=== PATIENT | male | born 1985 | race Caucasian/White ===

== ENCOUNTER 2018-05-06 21:32 | Emergency (ER) | payer SELFPAY ==
[~2018-05-06] VITALS: Ht 177.8 cm; Wt 104.3 kg
[~2018-05-06 21:32] MED LIST: AMOX500C2 PO; CEFP500T4 PO; CETI10CA PO; FAMO-119 PO; HYDR-3583 PO; NF-TRA/ACE PO; PRD10T PO; SULF1TAB35 PO
[2018-05-06] MEDS ORDERED: LIDOCAINE 1% INJ 20 ML 20 ML VIAL ONE (21:37)
--- NOTE | 2018-05-06 21:44 | ED Upper Extremity ---
General Chief Complaint: Laceration Stated Complaint: ARM LAC Source: patient, family Exam Limitations: no limitations History of Present Illness Date Seen by Provider: May 06, 2018 Time Seen by Provider: 21:42 Initial Comments Patient is a 32-year-old male who presents to the emergency room with a right forearm laceration. He reports locking himself out of his house and he always leaves a window unlocked and when he went to open a month window by pushing up on it his arm went through the glass. He has a 4 and half centimeter laceration to his right forearm. Onset: just prior to arrival Pain/Injury Location: right forearm Method of Injury: other (put his arm through a window) Allergies and Home Medications Allergies Coded Allergies: No Known Drug Allergies (Unverified , 09/05/12) Home Medications Cetirizine HCl 10 Mg Capsule, 10 MG PO DAILY, (Reported) Famotidine 20 Mg Tablet, 20 MG PO BID Prescribed by: SONNY VAUGHAN on 12/28/152345 Prednisone 10 Mg Tab, 40 MG PO DAILY Prescribed by: SONNY VAUGHAN on 12/28/156 Patient Home Medication List Home Medication List Reviewed: Yes Constitutional: see HPI; No chills, No diaphoresis EENTM: no symptoms reported Respiratory: see HPI; No dyspnea on exertion, No short of breath, No wheezing Cardiovascular: see HPI; No chest pain, No edema Gastrointestinal: see HPI; No abdominal pain, No constipation, No diarrhea, No nausea, No vomiting Genitourinary: see HPI; No decreased output, No discharge Musculoskeletal: see HPI; No back pain, No gout Skin: see HPI, other (laceration to the right forearm) Psychiatric/Neurological: See HPI; Denies Anxiety, Denies Depressed All Other Systems Reviewed Negative Unless Noted: Yes Past Recpvkt-Zqjwmb-Cbgtxq Hx Past Med/Social Hx: Reviewed Nursing Past Med/Soc Hx Patient Social History Recent Foreign Travel: No Contact w/Someone Who Travel: No Seasonal Allergies Seasonal Allergies: Yes (ALLERGIC TO HIS DOG) Past Medical History Abdominal, Ear Surgery Family Medical History Reviewed Nursing Family Hx Physical Exam Vital Signs Capillary Refill : General Appearance: WD/WN, no apparent distress HEENT: PERRL/EOMI, normal ENT inspection, TMs normal, pharynx normal Neck: non-tender, full range of motion, supple Cardiovascular: normal peripheral pulses, regular rate, rhythm, no edema, no murmur Respiratory: chest non-tender, lungs clear, normal breath sounds, no respiratory distress Gastrointestinal: normal bowel sounds, non tender, soft Back: normal inspection, no CVA tenderness, no vertebral tenderness Shoulder: normal inspection, non-tender, no evidence of injury, normal ROM Elbow/Forearm: normal inspection, non-tender, normal ROM, Right (laceration) Wrist: Yes normal inspection, Yes non-tender, Yes no evidence of injury, Yes normal ROM, Yes abrasions Hand: normal inspection, non-tender, no evidence of injury, normal ROM Neurologic/Tendon: normal sensation, normal motor functions, normal tendon functions, responds to pain, no evidence tendon injury, other (the patient is able to open and close his hand and bend at the wrist out difficulty. He is able to move each individual finger and make a fist.) Neurologic/Psychiatric: alert, normal mood/affect, oriented x 3 Skin: normal color, warm/dry, other (there is a foreign half centimeter laceration to the right forearm. ) Lymphatic: no adenopathy Procedures/Interventions Wound Location: Upper Extremities Other Wound Location Right forearm Wound's Depth, Shape: superficial Wound Explored: clean Irrigated w/ Saline (ccs): 500 Volume Anesthetic (ccs): 8 Wound Debrided: minimal Suture: Prolene Suture Size: 4-0 Number of Sutures: 9 Progress The area was anesthetized with approximately a 8mL of lidocaine 1% without epi. The laceration was then irrigated with normal saline and Betasept proximally 500 mL of saline. The laceration was closed with 9 simple interrupted sutures. A dressing of Telfa, gauze, soft roll was placed after closure. Progress/Results/Core Measures Results/Orders My Orders Medications Given in ED Vital Signs/I&O Progress Progress Note : Progress Note The patient was not up-to-date on his tetanus vaccine and was updated on this visit. He agrees for plans of discharge and to return for signs of infection and for suture removal. Departure Impression Primary Impression: Laceration Disposition: 01 HOME, SELF-CARE Condition: Stable/Unchanged Departure-Patient Inst. Decision time for Depature: 22:13 Referrals: KARIME AGUILERA DO (PCP) Primary Care Physician CHARLIE VILLALTA (Family) Primary Care Physician Patient Instructions: Laceration Repair With Stitches (DC) Add. Discharge Instructions: Watch for signs of infection such as increased redness, swelling, drainage. If they should develop please come back to the emergency room or go to your doctor. Return back to the emergency room in 7-10 days for suture removal. Avoid submerging the wound in bathtubs, swimming pools, [place], or lakes. Follow -up with her doctor within 1 week for recheck return back to emergency room for any concerns as needed. All discharge instructions reviewed with patient and/or family. Voiced understanding. ASHA WALLACE May 06, 2018 21:44
[2018-05-06] MEDS ORDERED: TETANUS,DIPTH,PERTUSS P/F (BOOSTRIX) 0.5 ML VIAL IM ONE (21:45)
[2018-05-06] MEDS ORDERED: LIDOCAINE 1% INJ 20 ML 20 ML VIAL INJ ONE (21:45)
[2018-05-06 22:16] VITALS: BP 130/82
== END 2018-05-06 22:16 | disposition home or self-care (01) ==
LOC: EDUNIT# 21:32 → ER 21:34
DX: S51.811A Laceration without foreign body of right forearm, initial encounter (principal); Z23 Encounter for immunization; Z79.52 Long term (current) use of systemic steroids; W25.XXXA Contact with sharp glass, initial encounter
CPT/HCPCS: 12002; 90471; 90715

== ENCOUNTER 2018-05-16 13:25 | Emergency (ER) | payer SELFPAY ==
[~2018-05-16] VITALS: Ht 177.8 cm; Wt 104.3 kg
[2018-05-16 13:31] VITALS: BP 0/0
--- OUTSIDE RECORDS SUMMARY | 2018-05-17 17:41 | XMS REPORT ---
Author Author CHARLIE VILLALTA [facility] Address [address] [place] [address] Care Team Providers Care Picker Tender Helper Name Role Phone CHARLIE VILLALTA Unavailable PROBLEMS Type Condition ICD9-CM Code GWS74-JN Code Onset Dates Condition Status SNOMED Code Assessment Prediabetes R73.09 15 Jul, 2016 Active 755803856 Problem Snoring R06.83 Active 12682745 Problem Daytime hypersomnia G47.19 Active 82123901016748 Problem Mixed hyperlipidemia E78.2 Active 855439738 Problem Prediabetes R73.09 Active 607080883 Problem Right testicular pain N50.8 Active 74680433 Problem GERD with esophagitis K21.0 Active 641865174 ALLERGIES Substance Reaction Event Type Date Status Lovastatin shortness of breath, swelling Drug Allergy Jul, Active SOCIAL HISTORY No smoking Hx information available PLAN OF CARE VITAL SIGNS Height 70 in 2016-07-18 Weight 245.5 lbs 2016-07-18 Heart Rate 88 bpm 2016-07-18 BMI 35.22 kg/m2 2016-07-18 Blood pressure systolic 130 mmHg 2016-07-18 Blood pressure diastolic 84 mmHg 2016-07-18 MEDICATIONS Medication Instructions Dosage Frequency Start Date End Date Duration Status Simvastatin 20 MG Orally Once a day 1 tablet in the evening 24h 30 day(s) Active Zyrtec Allergy 10 MG Orally Once a day 1 tablet as needed 24h Active RESULTS No Results PROCEDURES Procedure Date Ordered Related Diagnosis Body Site Office Visit, Est Pt., Level 3 Jul 18, 2016 IMMUNIZATIONS No Known Immunizations
--- OUTSIDE RECORDS SUMMARY | 2018-05-17 17:41 | XMS REPORT ---
Author Author GURINDER SYKES Organization [facility] Address [address] [place] [address] Care Team Providers Care Heel Sorter Name Role Phone MARTI SYKESNETTE Unavailable PROBLEMS Type Condition ICD9-CM Code AQX38-UK Code Onset Dates Condition Status SNOMED Code Problem Prediabetes R73.09 Active 206852051 Problem Environmental allergies Z91.09 Active 673042804 Problem Snoring R06.83 Active 44983130 Problem GERD with esophagitis K21.0 Active 293679959 Problem Mixed hyperlipidemia E78.2 Active 697040052 Problem Daytime hypersomnia G47.19 Active 92232720620738 Problem Right testicular pain N50.8 Active 37777490 ALLERGIES Substance Reaction Event Type Date Status Lovastatin shortness of breath, swelling Drug Allergy Oct, Active SOCIAL HISTORY No smoking Hx information available PLAN OF CARE Activity Details Follow Up 1 Week, prn Reason: VITAL SIGNS Height 70 in 2016-10-05 Weight 236.6 lbs 2016-10-05 Temperature 97.5 degrees Fahrenheit 2016-10-05 Heart Rate 102 bpm 2016-10-05 Respiratory Rate 18 2016-10-05 BMI 33.94 kg/m2 2016-10-05 Blood pressure systolic 126 mmHg 2016-10-05 Blood pressure diastolic 78 mmHg 2016-10-05 MEDICATIONS Medication Instructions Dosage Frequency Start Date End Date Duration Status PredniSONE 20 mg Orally twice a day 1 tablet 12h Oct, Oct, 05 days Active RESULTS No Results PROCEDURES Procedure Date Ordered Related Diagnosis Body Site Office Visit, Est Pt., Level 3 Oct 05, 2016 IMMUNIZATIONS No Known Immunizations
--- OUTSIDE RECORDS SUMMARY | 2018-05-17 17:43 | XMS REPORT ---
Author Author CHARLIE VILLALTA Organization [employer] Address Unknown Phone Unavailable Care Team Providers Care Take Up Operator Name Role Phone CHARLIE VILLALTA CP Unavailable Allergies, Adverse Reactions, Alerts Substance Reaction Event Type N.K.D.A. Info Not Available Non Drug Allergy Problems Problem Type Condition Code Onset Dates Condition Status Problem Other and unspecified hyperlipidemia 272.4 Active Assessment Wrist pain, left M25.532 Active Problem Allergic rhinitis due to pollen 477.0 Active Medications Medication Code System Code Instructions Start Date End Date Status Dosage Zyrtec Allergy [facility] [address]-79 10 MG Orally Once a day 1 tablet as needed Procedures Procedure Coding System Code Date Office Visit, Est Pt., Level 3 CPT-4 64389 Nov 09, 2015 Vital Signs Date/Time: Nov 09, 2015 Temperature 98.4 F Weight 231.6 lbs Height 70 in BMI 33.23 Index Blood Pressure Diastolic 78 mmHg Blood Pressure Systolic 130 mmHg Cardiac Monitoring Heart Rate 96 bpm Results No Known Results Summary Purpose [employer] Submission
--- OUTSIDE RECORDS SUMMARY | 2018-05-17 17:46 | XMS REPORT ---
Author SHAYY Todd [facility] [employer] Address Unknown Phone Unavailable Care Team Providers Care Generator Operator Name Role Phone SHAYY GARCIA CP Unavailable Allergies, Adverse Reactions, Alerts Substance Reaction Event Type N.K.D.A. Info Not Available Non Drug Allergy Problems Problem Type Condition Code Onset Dates Condition Status Problem Other and unspecified hyperlipidemia 272.4 Active Assessment URI (upper respiratory infection) J06.9 Active Problem Allergic rhinitis due to pollen 477.0 Active Medications Medication Code System Code Instructions Start Date End Date Status Dosage Zyrtec Allergy [facility] [address]-53 10 MG Orally Once a day 1 tablet as needed Sudafed [facility] [address]-89 60 Orally every 6 hrs Aug 11, 2015 1 tablet as needed Procedures Procedure Coding System Code Date Office Visit, Est Pt., Level 2 CPT-4 32398 Aug 11, 2015 Vital Signs Date/Time: Aug 11, 2015 Temperature 97.6 F Weight 223.3 lbs Height 70 in BMI 32.04 Index Blood Pressure Diastolic 64 mmHg Blood Pressure Systolic 138 mmHg Cardiac Monitoring Heart Rate 104 bpm Results No Known Results Summary Purpose [employer] Submission
--- OUTSIDE RECORDS SUMMARY | 2018-05-17 17:52 | XMS REPORT ---
Author Author CHARLIE VILLALTA Organization [facility] [place] Address [address] [place] [address] Care Team Providers Care Television Repairer Name Role Phone CHARLIE VILLALTA Unavailable PROBLEMS Type Condition ICD9-CM Code XUE03-WF Code Onset Dates Condition Status SNOMED Code Problem Prediabetes R73.09 Active 067591638 Problem Mixed hyperlipidemia E78.2 Active 876683348 Problem GERD with esophagitis K21.0 Active 902700838 Problem Chronic allergic rhinitis due to animal hair and dander J30.81 Active 340246005398207 Problem Hyperlipidemia, unspecified hyperlipidemia type E78.5 Active 43762431 Problem Daytime hypersomnia G47.19 Active 55573526980006 Problem Right testicular pain N50.8 Active 45753620 Problem Environmental allergies Z91.09 Active 012352415 Problem Snoring R06.83 Active 29572948 ALLERGIES Substance Reaction Event Type Date Status Lovastatin shortness of breath, swelling Drug Allergy Oct, Active ENCOUNTERS Encounter Location Date Diagnosis [facility] [place] [address] [address] Oct, Chronic allergic rhinitis due to animal hair and dander J30.81 and Prediabetes R73.09 [facility] [place] [address] [address] Sep, GERD with esophagitis K21.0 and Hyperlipidemia, unspecified hyperlipidemia type E78.5 [facility] [address] [id number] Jun, Dental examination Z01.20 [facility] [place] [address] [address] Oct, Acute bronchitis, unspecified organism J20.9 [facility] [address] [address] Oct, Acute nasopharyngitis J00 and Environmental allergies Z91.09 [place] [address] [address] 15 Jul, 2016 Prediabetes R73.09 ; Mixed hyperlipidemia E78.2 ; Snoring R06.83 and Daytime hypersomnia G47.19 [place] [address] [address] Jul, [place] [address] [address] Jun, Frequent headaches R51 ; Fatigue, unspecified type R53.83 and Mixed hyperlipidemia E78.2 [place] [address] [address] Jun, Frequent headaches R51 ; Fatigue, unspecified type R53.83 ; Mixed hyperlipidemia E78.2 ; Snoring R06.83 and Daytime hypersomnia G47.19 [place] [address] [address] March, [place] [address] [address] Feb, Right testicular pain N50.8 and Mixed hyperlipidemia E78.2 [place] [address] [address] Jan, [place] [address] [address] Jan, GERD with esophagitis K21.0 [place] [address] [address] Dec, [place] [address] [address] Dec, GERD with esophagitis K21.0 and Mixed hyperlipidemia E78.2 [place] [address] [address] Dec, GERD with esophagitis K21.0 ; Mixed hyperlipidemia E78.2 and Epididymitis N45.1 [facility] [place] [address] [place] [id number] [place] [address] Nov, Wrist pain, left M25.532 [facility] [place] [address] [id number] [place] [address] 07 Nov, 2015 Wrist pain, left M25.532 [facility] [place] [address] [place] [id number] [place] [address] 09 Aug, 2015 URI (upper respiratory infection) J06.9 [facility] [place] [address] [id number] [place] [address] 14 Feb, 2015 [facility] [place] [address] [id number] [place] [address] Feb, [facility] [place] [id number] [place] [address] Jan, [facility] [place] [address] [id number] [place] [address] 24 Jan, 2015 [facility] [place] [address] [id number] [place] [address] Jan, [facility] [place] [id number] [place] [address] Jan, [facility] [place] [id number] [place] [address] 17 Jan, 2015 [facility] [place] [id number] [place] [address] Jan, [facility] [place] [id number] [place] [address] Jul, [facility] [place] [id number] [place] [address] Jul, [facility] [place] [id number] [place] [address] Jun, [facility] [place] [address] [facility] [id number] [address] Jun, [facility] [place] [address] [place] [address] Apr, [facility] [place] [address] [id number] [address] Apr, [facility] [place] [address] [place] [address] Jan, [facility] [place] [id number] [address] Jan, [facility] [place] [address] [place] [address] Apr, [facility] [place] [address] [place] [address] Apr, [facility] [place] [address] [id number] [address] Oct, IMMUNIZATIONS No Known Immunizations SOCIAL HISTORY Never Assessed REASON FOR VISIT Allergies, would like to discuss his OTC meds versus a prescription-Roel PLAN OF CARE Activity Details Follow Up 6 months prn Reason:pre diabetes VITAL SIGNS Height 70 in 2017-10-14 Weight 225.9 lbs 2017-10-14 Temperature 98.4 degrees Fahrenheit 2017-10-14 Heart Rate 84 bpm 2017-10-14 Respiratory Rate 20 2017-10-14 BMI 32.41 kg/m2 2017-10-14 Blood pressure systolic 108 mmHg 2017-10-14 Blood pressure diastolic 76 mmHg 2017-10-14 MEDICATIONS Medication Instructions Dosage Frequency Start Date End Date Duration Status Singulair 10 mg Orally Once a day 1 tablet in the evening 24h Oct, 90 days Active Levocetirizine Dihydrochloride 5 mg Orally Once a day 1 tablet in the evening 24h Oct, Jan, 90 days Active Omeprazole 40 MG Orally Once a day 1 capsule 24h Sep, 90 days Active Flonase 50 MCG/ACT Nasally Once a day 1 spray in each nostril 24h Oct, 30 day(s) Active RESULTS Name Result Date Reference Range A1C (IN HOUSE) 2017-10-14 A1C IN HOUSE 5.7 4.3 - 5.6 % Previous A1c 5.7 Lot [id number] Exp date PROCEDURES Procedure Date Ordered Result Body Site GLYCATED HEMOGLOBIN TEST Oct 14, 2017 INSTRUCTIONS MEDICATIONS ADMINISTERED No Known Medications MEDICAL (GENERAL) HISTORY Type Description Date Medical History Epididymitis Medical History Hyperkalemia Medical History Frequent headaches Surgical History tube in right ear 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
--- OUTSIDE RECORDS SUMMARY | 2018-05-17 17:52 | XMS REPORT ---
Author Author CHARLIE VILLALTA Organization [employer] Address Unknown Phone Unavailable Care Team Providers Care All Source Intelligence Name Role Phone CHARLIE VILLALTA CP Unavailable Allergies No Known Allergies Problems Problem Type Condition Code Onset Dates Condition Status Problem Allergic rhinitis due to pollen 477.0 Active Problem Epididymitis N45.1 Active Problem Hyperkalemia E87.5 Active Problem Fatigue, unspecified type R53.83 Active Problem Snoring R06.83 Active Problem Frequent headaches R51 Active Problem GERD with esophagitis K21.0 Active Problem Mixed hyperlipidemia E78.2 Active Problem Daytime hypersomnia G47.19 Active Problem Right testicular pain N50.8 Active Assessment Mixed hyperlipidemia E78.2 Active Assessment Fatigue, unspecified type R53.83 Active Assessment Frequent headaches R51 Active Problem Other and unspecified hyperlipidemia 272.4 Active Medications No Known Medications Procedures Procedure Coding System Code Date ASSAY OF FREE THYROXINE CPT-4 38930 Jun 28, 2016 COMPLETE CBC W/AUTO DIFF WBC CPT-4 44206 Jun 28, 2016 ASSAY THYROID STIM HORMONE CPT-4 72897 Jun 28, 2016 COMPREHEN METABOLIC PANEL CPT-4 93281 Jun 28, 2016 LIPID PANEL CPT-4 43316 Jun 28, 2016 VENIPUNCT, ROUTINE* CPT-4 65275 Jun 28, 2016 Results No Known Results Summary Purpose [employer] Submission
--- OUTSIDE RECORDS SUMMARY | 2018-05-17 17:53 | XMS REPORT ---
Author Author CHARLIE VILLALTA [facility] Address [address] [place] [address] Care Team Providers Care Die Reamer Name Role Phone CHARLIE VILLALTA Unavailable PROBLEMS Type Condition ICD9-CM Code ALA79-UF Code Onset Dates Condition Status SNOMED Code Problem Prediabetes R73.09 Active 669969406 Problem Environmental allergies Z91.09 Active 181279445 Problem Snoring R06.83 Active 25078652 Problem GERD with esophagitis K21.0 Active 061198313 Problem Mixed hyperlipidemia E78.2 Active 633694990 Problem Daytime hypersomnia G47.19 Active 19055668237166 Problem Right testicular pain N50.8 Active 52805016 ALLERGIES Substance Reaction Event Type Date Status Lovastatin shortness of breath, swelling Drug Allergy Oct, Active SOCIAL HISTORY No smoking Hx information available PLAN OF CARE Activity Details Follow Up prn Reason: VITAL SIGNS Height 70 in 2016-10-30 Weight 240.1 lbs 2016-10-30 Temperature 98.6 degrees Fahrenheit 2016-10-30 Heart Rate 80 bpm 2016-10-30 Respiratory Rate 18 2016-10-30 BMI 34.45 kg/m2 2016-10-30 Blood pressure systolic 134 mmHg 2016-10-30 Blood pressure diastolic 82 mmHg 2016-10-30 MEDICATIONS Medication Instructions Dosage Frequency Start Date End Date Duration Status Azithromycin 250 MG Orally Once a day 2 tablets on day 1, the take 1 tablet day 2-5 24h 5 day(s) Active RESULTS No Results PROCEDURES Procedure Date Ordered Related Diagnosis Body Site Office Visit, Est Pt., Level 3 Oct 30, 2016 IMMUNIZATIONS No Known Immunizations
--- OUTSIDE RECORDS SUMMARY | 2018-05-17 17:58 | XMS REPORT ---
Author Author CHARLIE VILLALTA Organization [employer] Address Unknown Phone Unavailable Care Team Providers Care Charging Plug Placer Name Role Phone CHARLIE VILLALTA CP Unavailable Allergies, Adverse Reactions, Alerts Substance Reaction Event Type Lovastatin shortness of breath, swelling Drug Allergy Problems Problem Type Condition Code [...] Assessment Fatigue, unspecified type R53.83 Active Assessment Daytime hypersomnia G47.19 Active Assessment Frequent headaches R51 Active Assessment Snoring R06.83 Active Problem Other and unspecified hyperlipidemia 272.4 Active Medications Medication Code System Code Instructions Start Date End Date Status Dosage Zyrtec Allergy [facility] [address]-28 10 MG Orally Once a day 1 tablet as needed Simvastatin [facility] [address]-80 20 MG Orally Once a day February 20, 2016 1 tablet in the evening Procedures Procedure Coding System Code Date Office Visit, Est Pt., Level 4 CPT-4 15431 Jun 27, 2016 GLYCATED HEMOGLOBIN TEST CPT-4 39472 Jun 27, 2016 Vital Signs Date/Time: Jun 27, 2016 Cardiac Monitoring Heart Rate 120 bpm Weight 242.8 lbs Height 70 in BMI 34.83 Index Blood Pressure Diastolic 86 mmHg Blood Pressure Systolic 132 mmHg Results No Known Results Summary Purpose [employer] Submission
--- OUTSIDE RECORDS SUMMARY | 2018-05-17 17:59 | XMS REPORT ---
Author Author CHARLIE VILLALTA [facility] Address [address] [place] [address] Care Team Providers Care Outpatient Facility Physical Therapist Name Role Phone CHARLIE VILLALTA Unavailable PROBLEMS Type Condition ICD9-CM Code YSA50-ME Code Onset Dates Condition Status SNOMED Code Problem Snoring R06.83 Active 28363313 Problem Daytime hypersomnia G47.19 Active 49539946688207 Problem Mixed hyperlipidemia E78.2 Active 434678713 Problem Prediabetes R73.09 Active 609473303 Problem Right testicular pain N50.8 Active 72510427 Problem GERD with esophagitis K21.0 Active 165401315 ALLERGIES No Known Allergies SOCIAL HISTORY No smoking Hx information available PLAN OF CARE VITAL SIGNS MEDICATIONS No Known Medications RESULTS No Results PROCEDURES No Known procedures IMMUNIZATIONS No Known Immunizations
--- OUTSIDE RECORDS SUMMARY | 2018-05-17 18:02 | XMS REPORT ---
Author CHARLIE Márquez [facility] eClinical[employer] Address Unknown Phone Unavailable Care Team Providers Care Music Industry Intern Name Role Phone CHARLIE VILLALTA CP Unavailable Allergies, Adverse Reactions, Alerts Substance Reaction Event Type Lovastatin shortness of breath, swelling Drug Allergy Problems Problem Type Condition Code Onset Dates Condition Status Assessment Right testicular pain N50.8 Active Assessment Mixed hyperlipidemia E78.2 Active Problem GERD with esophagitis K21.0 Active Problem Mixed hyperlipidemia E78.2 Active Problem Right testicular pain N50.8 Active Problem Allergic rhinitis due to pollen 477.0 Active Problem Other and unspecified hyperlipidemia 272.4 Active Problem Epididymitis N45.1 Active Problem Hyperkalemia E87.5 Active Medications Medication Code System Code Instructions Start Date End Date Status Dosage Flonase NDC 0 50 mcg/actuation January 17, 2015 1 sprays by Nasal route 2 times per day in each nostril. Zyrtec Allergy [facility] [address]-72 10 MG Orally Once a day 1 [place] [address]-81 20 MG Orally Once a day February 20, 2016 1 tablet in the evening Procedures Procedure Coding System Code Date URINE CULTURE/COLONY COUNT CPT-4 24769 February 20, 2016 Office Visit, Est Pt., Level 3 CPT-4 14927 February 20, 2016 URINALYSIS, AUTO, W/O SCOPE CPT-4 12726 February 20, 2016 Vital Signs Date/Time: February 20, 2016 Temperature 98.4 F Weight 238.4 lbs Height 70 in BMI 34.20 Index Blood Pressure Diastolic 77 mmHg Blood Pressure Systolic 136 mmHg Cardiac Monitoring Heart Rate 88 bpm Results Name Result Date Reference Range Unit Abnormality Flag UA LONG DIP (IN HOUSE) ----DAE negative 20160220 ----NIT negative 20160220 ----SG 1.010 20160220 ----KET negative 20160220 ----ANAHY negative 20160220 ----GLU negative 20160220 ----Odor none 20160220 ----pH 6.5 20160220 ----BLO negative 20160220 ----URO 0.2 20160220 ----Protein negative 20160220 ----Lot # [id number] ----Exp date 20160220 ----Clarity clear 20160220 ----Color yellow 20160220 Summary Purpose eClinicalWorks Submission
--- OUTSIDE RECORDS SUMMARY | 2018-05-17 18:40 | XMS REPORT | Continuity of Care Document ---
Demographics Preferred Language Unknown Marital Status Unknown Confucianist Affiliation Unknown Race Unknown Ethnic Group Unknown Author Author [facility] Address Unknown Phone Unavailable Allergies Active Description Code Type Severity Reaction Onset Reported/Identified Relationship to Patient Clinical Status Yes No Known Drug Allergies [id number] Drug Allergy Unknown N/A 09/05/2012 Medications There is no data. Problems Date Dx Coded Attending Type Code Diagnosis Diagnosed By 11/01/2009 462 ACUTE PHARYNGITIS 11/01/2009 465.9 UPPER RESPIRATORY INFECTION 11/01/2009 786.2 COUGH 11/01/2009 VONDA MAURICIO MD 462 ACUTE PHARYNGITIS 11/01/2009 VONDA MAURICIO MD 465.9 UPPER RESPIRATORY INFECTION 11/01/2009 VONDA MAURICIO MD 786.2 COUGH 11/01/2009 LEISA PANCHAL DEQUAN R 462 ACUTE PHARYNGITIS 11/01/2009 LEISA PANCHAL DEQUAN R 465.9 UPPER RESPIRATORY INFECTION 11/01/2009 LEISA PANCHAL DEQUAN R 786.2 COUGH 11/01/2009 AISHA HERNANDEZ MD N 462 ACUTE PHARYNGITIS 11/01/2009 AISHA HERNANDEZ MD N 465.9 UPPER RESPIRATORY INFECTION 11/01/2009 AISHA HERNANDEZ MD N 786.2 COUGH 11/01/2009 LEISA PANCHAL, DEQUAN R 462 ACUTE PHARYNGITIS 11/01/2009 SHANTEL DE LA FUENTE APRNINA R 465.9 UPPER RESPIRATORY INFECTION 11/01/2009 LEISA PANCHAL DEQUAN R 786.2 COUGH 08/15/2010 Ot 382.01 08/15/2010 Ot 388.70 09/06/2012 Ot 521.00 UNSPEC DENTAL CARIES 09/06/2012 Ot 525.9 DENTAL DISORDER NOS 01/07/2014 VONDA MAURICIO MD 477.9 ALLERGIC RHINITIS CAUSE UNSPECIFIED 01/07/2014 VONDA MAURICIO MD 508.9 RESPIRATORY CONDITIONS DUE TO UNSPECIFIED EXTERNAL AGENT 01/07/2014 DEQUAN DE LA FUENTE APRN R 477.9 ALLERGIC RHINITIS CAUSE UNSPECIFIED 01/07/2014 DEQUAN DE LA FUENTE APRN R 508.9 RESPIRATORY CONDITIONS DUE TO UNSPECIFIED EXTERNAL AGENT 01/07/2014 AISHA HERNANDEZ MD N 477.9 ALLERGIC RHINITIS CAUSE UNSPECIFIED 01/07/2014 AISHA HERNANDEZ MD N 508.9 RESPIRATORY CONDITIONS DUE TO UNSPECIFIED EXTERNAL AGENT 01/07/2014 SHANTEL DE LA FUENTE APRNINA R 477.9 ALLERGIC RHINITIS CAUSE UNSPECIFIED 01/07/2014 SHANTEL DE LA FUENTE APRNINA R 508.9 RESPIRATORY CONDITIONS DUE TO UNSPECIFIED EXTERNAL AGENT 06/28/2014 SHANTEL DE LA FUENTE APRNINA R 461.9 SINUSITIS ACUTE 06/28/2014 AISHA HERNANDEZ MD N 461.9 SINUSITIS ACUTE 06/28/2014 DEQUAN DE LA FUENTE APRN R 461.9 SINUSITIS ACUTE 01/17/2015 DEQUAN DE LA FUENTE APRN R 477.0 ALLERGIC RHINITIS DUE TO POLLEN 01/17/2015 SHANTEL DE LA FUENTE APRNINA R V70.0 ROUTINE GENERAL MEDICAL EXAMINATION AT A HEALTH CARE FACILITY 01/24/2015 DEQUAN DE LA FUENTE APRN R 272.4 HYPERLIPIDEMIA 12/06/2015 Ot N45.1 EPIDIDYMITIS 12/17/2015 KATHLEEN VARMA HEDIS ANALYST Ot F17.210 NICOTINE DEPENDENCE, CIGARETTES, UNCOMPL 12/17/2015 KATHLEEN VARMA HEDIS ANALYST Ot R07.0 PAIN IN THROAT 12/29/2015 SONNY VAUGHAN DO Ot T78.3XXA ANGIONEUROTIC EDEMA, INITIAL ENCOUNTER 02/26/2016 CHARLIE VILLALTA MITER SAWYER Ot N50.8 OTHER SPECIFIED DISORDERS OF MALE GENITA 11/07/2016 CHARLIE VILLALTA MITER SAWYER Ot N50.8 OTHER SPECIFIED DISORDERS OF MALE GENITA 05/06/2018 CHARLIE VILLALTA MITER SAWYER Ot N50.8 OTHER SPECIFIED DISORDERS OF MALE GENITA 05/06/2018 ASHA WALLACE Ot S51.811A LACERATION W/O FOREIGN BODY OF RIGHT FOR 05/06/2018 ASHA WALLACE Ot W25.XXXA CONTACT WITH [place], INITIAL ENCOUN 05/06/2018 ASHA WALLACE Ot Z23 ENCOUNTER FOR IMMUNIZATION 05/06/2018 ASHA WALLACE Ot Z79.52 ALF (CURRENT) USE OF SYSTEMIC STER 05/07/2018 ASHA WALLACE Ot S51.811A LACERATION W/O FOREIGN BODY OF RIGHT FOR 05/07/2018 ASHA WALLACE Ot W25.XXXA CONTACT WITH [place], INITIAL ENCOUN 05/07/2018 RODRIGO ASHA Ot Z23 ENCOUNTER FOR IMMUNIZATION 05/07/2018 RODRIGOASHA Ot Z79.52 ALF (CURRENT) USE OF SYSTEMIC STER Procedures Code Description [place] [address] ROUTINE VENIPUNCTURE 01/19/2015 24081 CBC 01/19/2015 5342855 GFR CALC (RESULT ONLY) 01/19/2015 99138 CMP 01/19/2015 99165 LIPID PANEL 01/19/2015 42189 TSH 01/19/2015 Results There is no data. Encounters ACCT No. Visit Date/Time Discharge Status Pt. Type Provider Facility Loc./Unit Complaint [id number] 05/06/2018 21:34:00 05/06/2018 22:16:00 DIS Emergency BRADENASHA BA [facility] ER ARM LAC [id number] 11/11/2016 21:00:00 11/11/2016 23:59:59 CLS Preadmit CHARLIE VILLALTA MITER SAWYER [facility] SLEEP HYPERSOMNIA,SNORING [id number] 02/23/2016 14:42:00 02/23/2016 23:59:59 CLS Outpatient CHARLIE VILLALTA MITER SAWYER [facility] RAD RIGHT TESTICULAR PAIN [id number] 12/28/2015 21:17:00 12/29/2015 00:08:00 DIS Emergency SONNY VAUGHAN DO [facility] ER ALERGIC REACTION [id number] 12/17/2015 09:51:00 12/17/2015 11:48:00 DIS Emergency KATHLEEN VARMA APRN [facility] ER THROAT DISCOMFORT [id number] 07/09/2013 12:32:00 07/09/2013 23:59:59 CLS Outpatient [id number] 12/06/2015 22:01:00 Document Registration [id number] 09/05/2012 22:00:00 Document Registration [id number] 08/14/2010 21:00:00 Document Registration [id number] 01/19/2015 08:26:00 01/19/2015 23:59:59 CLS Outpatient DEQUAN DE LA FUENTE APRN [id number] 07/21/2014 16:15:00 07/21/2014 23:59:59 CLS Outpatient AISHA HERNANDEZ MD [id number] 06/28/2014 16:33:00 06/28/2014 23:59:59 CLS Outpatient DEQUAN DE LA FUENTE APRN [id number] 01/07/2014 11:03:00 01/07/2014 23:59:59 CLS Outpatient VONDA MAURICIO MD [id number] 03/09/2013 09:24:00 Document Registration [id number] 10/14/2017 14:00:00 10/14/2017 23:59:59 CLS Outpatient CHARLIE VILLALTA APRN [facility]
== END 2018-05-16 13:44 | disposition home or self-care (01) ==
LOC: EDUNIT# 13:25 → ER 13:28
DX: Z48.02 Encounter for removal of sutures (principal); F17.200 Nicotine dependence, unspecified, uncomplicated

== ENCOUNTER 2018-09-07 08:39 | Emergency (ER) | payer SELFPAY ==
[~2018-09-07] VITALS: Ht 177.8 cm; Wt 106.6 kg
--- NOTE | 2018-09-07 10:00 | ED General ---
General Chief Complaint: Cough/Cold/Flu Symptoms Stated Complaint: COUGH Source of Information: Patient Exam Limitations: No Limitations History of Present Illness Date Seen by Provider: Sep 07, 2018 Time Seen by Provider: 08:50 Initial Comments This 32-year-old man presents to the emergency room with complaints of cough, shortness of air, congestion, and fever that started about one week ago. Fever has since resolved. He was seen at [facility] yesterday and prescribed amoxicillin because of otitis media. Patient is a smoker. He denies a history of asthma but he has inhalers that he uses because of bronchitis and allergy symptoms. He has not been using them routinely for these symptoms. He is especially concerned today about pain he is feeling in the lower quadrants of his abdomen that is particularly painful with cough. This developed a couple of days ago and has worsened. Allergies and Home Medications Allergies Coded Allergies: No Known Drug Allergies (Unverified , 09/05/12) Home Medications Cetirizine HCl 10 Mg Capsule, 10 MG PO DAILY, (Reported) Famotidine 20 Mg Tablet, 20 MG PO BID Prescribed by: SONNY VAUGHAN on 12/28/156 Prednisone 10 Mg Tab, 40 MG PO DAILY Prescribed by: SONNY VAUGHAN on 12/28/15 2346 Prednisone 20 Mg Tab, 40 MG PO DAILY Prescribed by: LUIS DENISE on 09/07/18 1001 Patient Home Medication List Home Medication List Reviewed: Yes Review of Systems Review of Systems Constitutional: see HPI EENTM: see HPI Respiratory: see HPI Cardiovascular: no symptoms reported Gastrointestinal: see HPI Genitourinary: no symptoms reported Musculoskeletal: see HPI Skin: no symptoms reported Psychiatric/Neurological: No Symptoms Reported Hematologic/Lymphatic: No Symptoms Reported Past Cwokxom-Ifruch-Kuhaoy Hx Immunizations Up To Date Tetanus Booster (TDap): Unknown PED Vaccines UTD: Yes Seasonal Allergies Seasonal Allergies: Yes (ALLERGIC TO HIS DOG) Past Medical History Surgeries: Yes (TUMOR REMOVED FROM STOMACH, TUBE IN ONE EAR) Abdominal, Ear Surgery Respiratory: Yes (tobaccoism, history of bronchitis) Cardiac: No Neurological: No Reproductive Disorders: Yes (scrotal swelling when constipated) Gastrointestinal: Yes ("HEARTBURN" ) Musculoskeletal: No Endocrine: No HEENT: No Cancer: No Psychosocial: No Integumentary: No Blood Disorders: No Physical Exam Vital Signs Vital Signs - First Documented 09/07/18 09:44 Temp 97.4 Pulse 101 Resp 20 B/P (MAP) 163/85 (111) Pulse Ox 99 O2 Delivery Room Air Capillary Refill : Height, Weight, BMI Height: 5'10.00" Weight: 230lbs. 0oz. 104.523541kw; 28.12 BMI Method:Stated General Appearance: No Apparent Distress, WD/WN HEENT: PERRL/EOMI, Pharyngeal Erythema, TM Abnormal (L) (erythematous), TM Abnormal (R) (cerumen impaction obscuring visualization) Neck: Normal Inspection Respiratory: Lungs Clear, Normal Breath Sounds, No Accessory Muscle Use, No Respiratory Distress, Other (splinting respirations. When expiration is forced , it induces wheezing, rhonchi, and cough) Cardiovascular: Regular Rate, Rhythm, No Edema, No Murmur Gastrointestinal: Normal Bowel Sounds, Soft, Tenderness (bilateral lower quadrants), Other (no bulges with Valsalva to suggest hernia) Genital/Rectal: Normal Genital Exam, Other (no inguinal hernia detected) Extremity: Normal Inspection Neurologic/Psychiatric: Alert, Oriented x3, No Motor/Sensory Deficits, Normal Mood/Affect, devops II-XII Norm as Tested Skin: Normal Color, Warm/Dry Procedures/Interventions Suture Size: 4-0 Progress/Results/Core Measures Suspected Sepsis SIRS Temperature: Pulse: Respiratory Rate: Blood Pressure / Mean: Results/Orders Vital Signs/I&O 09/07/18 09:44 Temp 97.4 Pulse 101 Resp 20 B/P (MAP) 163/85 (111) Pulse Ox 99 O2 Delivery Room Air Capillary Refill : Progress Note : Progress Note I counseled patient on smoking cessation and appropriate use of inhalers. Prednisone was prescribed for further treatment. We discussed appropriate use of ueyg-kmk-wplpwxy medications as well. Follow-up with his PCP was recommended. Departure Impression Primary Impression: Acute bronchitis Qualified Codes: J20.9 - Acute bronchitis, unspecified Additional Impressions: Abdominal muscle strain Qualified Codes: S39.011A - Strain of muscle, fascia and tendon of abdomen, initial encounter Smoking Cerumen impaction Qualified Codes: H61.21 - Impacted cerumen, right ear Disposition: 01 HOME, SELF-CARE Condition: Stable Departure-Patient Inst. Decision time for Depature: 09:56 Referrals: KARIME AGUILERA DO (PCP) Primary Care Physician CHARLIE VILLALTA (Family) Primary Care Physician Patient Instructions: Acute Bronchitis, Adult (DC), Ear Wax Impaction Add. Discharge Instructions: For pain take ibuprofen up to 600 mg every 6 hours as needed. Add Tylenol ( acetaminophen) up to 1000 mg every 6 hours as needed for additional pain relief. For cough suppression you may take vnat-kwt-dzdgotr medications with DM ( dextromethorphan). If you take a combination medication, please be sure you do not take extra doses of Tylenol (acetaminophen). Please check active ingredient lists on combination medications. Reduce smoking and work toward quitting as soon as possible. Seek assistance from your primary care provider if necessary. You may use obvu-ihk-kzovqoy earwax removal products such as Debrox. Do not insert Q-tips into the ear canal as this may pack wax deeper into the ear canal. Contact your doctor for a follow-up exam and to discuss smoking cessation as soon as possible. Resume your inhaled maintenance steroid after your oral prednisone is complete. Complete your antibiotic as prescribed. Use your albuterol inhaler 2 puffs every 4 hours as needed for uncontrolled cough, shortness of breath, or wheezing. All discharge instructions reviewed with patient and/or family. Voiced understanding. Scripts Prednisone (Prednisone) 20 Mg Tab 40 MG PO DAILY, #8 TAB Prov: LUIS GALINDO MD 09/07/18 LUIS GALINDO MD Sep 07, 2018 10:00
[2018-09-07] MEDS ORDERED: PRD20T PO (10:01)
[2018-09-07 10:15] VITALS: BP 163/85
== END 2018-09-07 10:15 | disposition home or self-care (01) ==
LOC: EDUNIT# 08:39 → ER 08:40
DX: S39.011A Strain of muscle, fascia and tendon of abdomen, initial encounter (principal); J20.9 Acute bronchitis, unspecified; H61.21 Impacted cerumen, right ear; F17.210 Nicotine dependence, cigarettes, uncomplicated; Z86.012 Personal history of benign carcinoid tumor; X58.XXXA Exposure to other specified factors, initial encounter
CPT/HCPCS: 99282

== ENCOUNTER 2018-12-26 12:15 | Emergency (ER) | payer SELFPAY ==
[~2018-12-26] VITALS: Ht 177.8 cm; Wt 99.8 kg
[~2018-12-26 12:15] MED LIST changes: +PRD20T PO
--- NOTE | 2018-12-26 13:19 | ED General ---
General Chief Complaint: General Problems/Pain Stated Complaint: WANTS HIV TESTING Nursing Triage Note: PATIENT HERE STATING HE WOULD LIKE TO BE TESTED FOR HIV. CLAIMS THAT HE AND HIS ARE BUT THAT HE FOUND A "SUSCPICIOUS PRESCRIPTION BAG" WITH HIS 'S NAME ON IT. HE IS CONCERNED THAT THE PRESCRIPTION IS AN HIV MEDICATION. HE STATES THAT HE RECENTLY HAD SOME SORES IN HIS MOUTH NAD HAS FELT FATIGUED. Nursing Sepsis Screen: No Definite Risk Source of Information: Patient Exam Limitations: No Limitations History of Present Illness Date Seen by Provider: Dec 26, 2018 Time Seen by Provider: 13:25 Initial Comments 33-year-old male patient presents to the emergency department with reports of needing an HIV test. Patient states that he and I was are at this time and he had found a "suspicious prescription bag" behind the stove. States when he confronted his about the prescriptions she became very angry. Patient states he has been googling symptoms and is concerned that he may have an infection such as HIV from his . Denies his having a confirmed HIV test. Patient states she has been "acting suspiciously." Also states she knows that he has a history of drug abuse, and states "she is driving him away and to do drugs again." Patient also states he was "getting really anxious at home thinking about everything going on" and decided to come to the emergency department. Patient denies any IV drug use or having a history of IV drug use. Patient denies any homicidal or suicidal ideation. Patient also complains of one year onset of chronic generalized abdominal pain and 8 months of a chronic cough. Denies being seen by his PCP for this. Denies seeing anyone for the chronic abdominal pain. Denies any symptoms being worse than usual. He does recall having sores in his mouth a couple of months ago, but these have resolved completely. He does feel fatigued at times. Timing/Duration: Changing Over Time Modifying Factors: worse with Other (denies trying any hmgu-knv-pqflegp remedies.) Allergies and Home Medications Allergies Coded Allergies: No Known Drug Allergies (Unverified , 09/05/12) Home Medications Cetirizine HCl 10 Mg Capsule, 10 MG PO DAILY, (Reported) Famotidine 20 Mg Tablet, 20 MG PO BID Prescribed by: SONNY VAUGHAN on 12/28/15 3103 Hydroxyzine Pamoate 25 Mg Capsule, 25 MG PO Q4H PRN for ANXIETY Prescribed by: GUMARO AHN on 12/26/18 1455 Prednisone 10 Mg Tab, 40 MG PO DAILY Prescribed by: SONNY VAUGHAN on 12/28/15 2346 Prednisone 20 Mg Tab, 40 MG PO DAILY Prescribed by: LUIS FIGUEREDO on 09/07/18 1001 Patient Home Medication List Home Medication List Reviewed: Yes Review of Systems Review of Systems Constitutional: No chills, No diaphoresis, No dizziness, No fever, No malaise, No weakness; other (fatigue) EENTM: see HPI; No ear pain, No hoarseness, No mouth pain, No mouth swelling, No nose congestion, No throat pain, No throat swelling Respiratory: No cough, No dyspnea on exertion, No phlegm, No short of breath, No wheezing Cardiovascular: No chest pain, No edema, No palpitations, No syncope Gastrointestinal: see HPI; No constipation, No diarrhea, No hematemesis, No heartburn, No jaundice, No melena, No nausea, No vomiting Genitourinary: No decreased output, No discharge, No dysuria, No frequency, No hematuria, No pain Musculoskeletal: no symptoms reported Skin: no symptoms reported Psychiatric/Neurological: No Symptoms Reported All Other Systems Reviewed Negative Unless Noted: Yes (Negative excepted noted.) Past Fsiqbap-Mrtgkc-Knwjzu Hx Past Med/Social Hx: Reviewed Nursing Past Med/Soc Hx Patient Social History Alcohol Use: Occasionally Uses Recreational Drug Use: Yes (MARIJUANA AND "UPPERS") Smoking Status: Current Everyday Smoker Type Used: Cigarettes 2nd Hand Smoke Exposure: Yes Recent Foreign Travel: No Contact w/Someone Who Travel: No Recent Infectious Disease Expo: No Physical Abuse: No Sexual Abuse: No Immunizations Up To Date Tetanus Booster (TDap): Unknown PED Vaccines UTD: Yes Seasonal Allergies Seasonal Allergies: Yes (ALLERGIC TO HIS DOG) Past Medical History Surgeries: Yes (TUMOR REMOVED FROM STOMACH, TUBE IN ONE EAR) Abdominal, Ear Surgery Respiratory: Yes (tobaccoism, history of bronchitis) Cardiac: No Neurological: No Reproductive Disorders: Yes (scrotal swelling when constipated) Gastrointestinal: Yes ("HEARTBURN" ) Musculoskeletal: No Endocrine: No HEENT: No Cancer: No Psychosocial: No Integumentary: No Blood Disorders: No Family Medical History Reviewed Nursing Family Hx No Pertinent Family Hx Physical Exam Vital Signs Vital Signs - First Documented 12/26/18 12:30 Temp 98.8 Pulse 119 Resp 18 B/P (MAP) 128/85 (99) Pulse Ox 98 Capillary Refill : Less Than 3 Seconds Height, Weight, BMI Height: 5'10.00" Weight: 220lbs. 0oz. 99.394667hz; 28.12 BMI Method:Stated General Appearance: No Apparent Distress, WD/WN HEENT: PERRL/EOMI, TMs Normal, Normal ENT Inspection, Pharynx Normal Neck: Full Range of Motion, Normal Inspection, Non Tender, Supple Respiratory: Lungs Clear, Normal Breath Sounds, No Accessory Muscle Use, No Respiratory Distress Cardiovascular: Regular Rate, Rhythm, No Edema, No Gallop, No Murmur, Normal Peripheral Pulses Gastrointestinal: Normal Bowel Sounds, No Organomegaly, Soft; No Distended, No Guarding, No Mass, No Rebound; Tenderness (mild generalized tenderness) Back: Normal Inspection Extremity: Normal Capillary Refill, No Calf Tenderness, No Pedal Edema Neurologic/Psychiatric: Alert, Oriented x3, Normal Mood/Affect, aerodynamics teacher II-XII Norm as Tested, Other (slightly anxious mood) Skin: Normal Color, Warm/Dry; No Jaundice, No Petechia, No Rash Procedures/Interventions Suture Size: 4-0 Progress/Results/Core Measures Suspected Sepsis Recent Fever Within 48 Hours: No Infection Criteria Present: None New/Unexplained Altered Menta: No Sepsis Screen: No Definite Risk SIRS Temperature:98.8 Pulse: 119 Respiratory Rate: 18 Blood Pressure 128 /85 Mean: 99 Results/Orders Vital Signs/I&O 12/26/18 12/26/18 12:30 14:25 Temp 98.8 98.8 Pulse 119 119 Resp 18 18 B/P (MAP) 128/85 (99) 128/85 (99) Pulse Ox 98 98 Capillary Refill : Less Than 3 Seconds Blood Pressure Mean: 99 Departure Communication (Admissions) Patient seen and evaluated. Patient's symptoms are very vague and nonspecific. Patient does state that the more he thought about his situation at home, the more anxious he had become. He states he wanted to come to the ED for "peace of mind". I discussed contacting [facility] for patient to follow- up as an outpatient for evaluation, testing, and for improved continuity of care as someone will need to follow his labs closely. This can be better accomplished though his PCP. 1355 patient case discussed with the denial resolution specialist PRO SH[employer] ATTENDANT, Viviana, at [facility] clinic. She reports they are able to do rapid HIV testing in their facility. Viviana states they will have the patient be seen early this week for recheck and further evaluation and management. She requests patient to contact their office first thing Friday for appointment time. This was discussed with the patient. Patient verbalizes understanding and is agreeable with this treatment plan. I discussed this case with Dr. Figueredo, he agrees with the plan of care. Impression Primary Impression: Fatigue Qualified Codes: R53.83 - Other fatigue Additional Impressions: Stress at home Chronic cough Disposition: HOME, SELF-CARE Condition: Improved Departure-Patient Inst. Decision time for Depature: 14:13 Referrals: KARIME AGUILERA DO (PCP) Primary Care Physician DEVIN COVARRUBIAS (Family) Primary Care Physician Patient Instructions: Fatigue (DC), Stress Add. Discharge Instructions: All discharge instructions reviewed with patient and/or family. Voiced understanding. Over the counter vistaril 25 mg by mouth every 4-6 hours as needed for stress or nerves. Do NOT take medications prescribed for other people. Get plenty of rest. Drink plenty of fluids. Follow-up with [facility] Friday or Friday for recheck, outpatient labs, and further management. Return to the emergency department immediately for worsened symptoms, shortness of breath, chest pain, vomiting, decreased urination, fever , thoughts of harming yourself, thoughts of harming others, or any other concerns. Scripts Hydroxyzine Pamoate (Vistaril) 25 Mg Capsule 25 MG PO Q4H PRN for ANXIETY, #14 CAP 0 Refills Prov: GUMARO AHN 12/26/18 GUMARO AHN Dec 26, 2018 13:19
[2018-12-26 14:25] VITALS: BP 128/85
[2018-12-26] MEDS ORDERED: HYDR25CA PO (14:55)
== END 2018-12-26 14:25 | disposition home or self-care (01) ==
LOC: EDUNIT# 12:15 → ER 12:17
DX: R53.83 Other fatigue (principal); F43.9 Reaction to severe stress, unspecified; R05 Cough; F17.210 Nicotine dependence, cigarettes, uncomplicated; F12.10 Cannabis abuse, uncomplicated; Z79.52 Long term (current) use of systemic steroids; Z90.89 Acquired absence of other organs; Z98.890 Other specified postprocedural states; Z87.09 Personal history of other diseases of the respiratory system; Z20.6 Contact with and (suspected) exposure to human immunodeficiency virus [HIV]
CPT/HCPCS: 99281

== ENCOUNTER 2019-05-17 06:28 | Outpatient (CLI) | payer MEDICAID ==
[~2019-05-17] VITALS: Ht 177.8 cm; Wt 102.5 kg
[~2019-05-17 06:28] MED LIST changes: +HYDR25CA PO
== END 2019-05-17 12:19 | disposition home or self-care (01) ==
LOC: PREOP 06:28
PROVIDERS: ATTEND Urology
DX: Z01.818 Encounter for other preprocedural examination (principal)

== ENCOUNTER 2019-07-07 10:31 | Emergency (ER) | payer MEDICAID ==
[~2019-07-07] VITALS: Ht 177.8 cm; Wt 104.3 kg
[2019-07-07 11:30] LABS: BILIRUBIN,URINE NEGATIVE (NEGATIVE); CLARITY,URINE CLEAR; COLOR,URINE YELLOW; GLUCOSE, URINE (UA) NEGATIVE (NEGATIVE); KETONES,URINE NEGATIVE (NEGATIVE); LEUKOCYTE ESTERASE ,URINE NEGATIVE (NEGATIVE); NITRITE,URINE NEGATIVE (NEGATIVE); PH,URINE 6 (5-9); PROTEIN,URINE NEGATIVE (NEGATIVE); UROBILINOGEN,URINE NORMAL (NORMAL)
--- NOTE | 2019-07-07 11:33 | NUR ---
LAB CONTACTED FOR BLOOD DRAW.
[2019-07-07 11:43] LABS: AMPHETAMINE SCREEN, URINE NEGATIVE (NEGATIVE); BARBITURATE SCREEN URINE NEGATIVE (NEGATIVE); BENZODIAZEPINES SCREEN URINE NEGATIVE (NEGATIVE); CANNABINOID SCREEN, URINE POSITIVE (NEGATIVE); COCAINE SCREEN URINE NEGATIVE (NEGATIVE); METHAMPHETAMINE SCREEN URINE S NEGATIVE (NEGATIVE); OPIATE SCREEN URINE NEGATIVE (NEGATIVE); TRICYCLIC ANTIDEPRESSANTS SCRE NEGATIVE (NEGATIVE)
[2019-07-07 11:44] LABS: METHADONE STAT NEGATIVE (NEGATIVE); OXYCODONE STAT NEGATIVE (NEGATIVE); PROPOXYPHENE STAT NEGATIVE (NEGATIVE)
--- NOTE | 2019-07-07 11:45 | ED General ---
General Chief Complaint: General Problems/Pain Stated Complaint: LOWER BACK PAIN;DEHYDRATION Nursing Triage Note: STATES HE WAS IN THE ER IN [place] LAST WEEK AND DX WITH DEHYDRATION THAT EFFECTED HIS KIDNEYS. THINKS HE WENT BACK TO WORK TO SOON BECAUSE HE IS HAVING KIDNEY PAIN AND WEAKNESS. Nursing Sepsis Screen: No Definite Risk History of Present Illness Date Seen by Provider: Jul 07, 2019 Time Seen by Provider: 11:30 Initial Comments 33-year-old male reports after a two-week history of dehydration. He is continuing to have intermittent low back pain. He reports trying to return to work and having problems with malaise and fatigue related to the heat. He works outside digging cable lines. He also reports possibly using meth or Ice this weekend from a friend, he is unsure what he was given. In addition he reports to using marijuana daily. He was seen by his primary care provider last week but has not followed up this week. He has been increasing his oral fluids, trying to get at least 1 L of fluids in before noon each day. He has been drinking Pedialyte, Sprite and Gatorade. Timing/Duration: Intermittent Severity: Mild Modifying Factors: improves with Rest Associated Systoms: No Chest Pain, No Cough, No Diaphoresis, No Fever/Chills, No Headaches; Malaise; No Nausea/Vomiting, No Rash, No Seizure, No Shortness of Air, No Syncope; Weakness Allergies and Home Medications Allergies Coded Allergies: lovastatin (Verified Allergy, Unknown, Anaphylaxis, 05/17/19) Home Medications No Active Prescriptions or Reported Meds Patient Home Medication List Home Medication List Reviewed: Yes Review of Systems Review of Systems Constitutional: no symptoms reported, see HPI, weakness Genitourinary: no symptoms reported, see HPI; No dysuria, No frequency, No hematuria, No pain Musculoskeletal: no symptoms reported, back pain All Other Systems Reviewed Negative Unless Noted: Yes Past Kxpnubk-Nihrxl-Nllsxy Hx Past Med/Social Hx: Reviewed Nursing Past Med/Soc Hx, Reviewed and Corrections made Patient Social History Alcohol Use: Rarely Uses Recreational Drug Use: Yes Drug of Choice: marijuana daily and meth amphetamines monthly Type Used: Cigarettes 2nd Hand Smoke Exposure: Yes Recent Foreign Travel: No Contact w/Someone Who Travel: No Recent Infectious Disease Expo: No Recent Hopitalizations: No Immunizations Up To Date Tetanus Booster (TDap): Unknown PED Vaccines UTD: Yes Seasonal Allergies Seasonal Allergies: Yes (ALLERGIC TO HIS DOG) Past Medical History Surgeries: Yes (TUMOR REMOVED FROM STOMACH, TUBE IN ONE EAR) Abdominal, Ear Surgery Respiratory: No Cardiac: No Neurological: No Reproductive Disorders: Yes (scrotal swelling when constipated) Genitourinary: Yes Gastrointestinal: Yes Gastroesophageal Reflux Musculoskeletal: No Endocrine: No HEENT: No Cancer: No Psychosocial: No Integumentary: Yes (rash on both arms) Blood Disorders: No Family Medical History No Pertinent Family Hx Physical Exam Vital Signs Vital Signs - First Documented 07/07/19 11:15 Temp 97.5 Pulse 83 Resp 16 B/P (MAP) 123/78 (93) Pulse Ox 97 O2 Delivery Room Air Capillary Refill : Less Than 3 Seconds Height, Weight, BMI Height: 5'10.00" Weight: 230lbs. 6.0oz. 104.995634ft; 32.8 BMI Method:Stated General Appearance: No Apparent Distress, WD/WN Eyes: Bilateral Eye Normal Inspection, Bilateral Eye PERRL, Bilateral Eye EOMI HEENT: PERRL/EOMI, TMs Normal, Normal ENT Inspection, Pharynx Normal, Other (oral mucosa pink and moist) Neck: Full Range of Motion, Normal Inspection, Non Tender, Supple Respiratory: Chest Non Tender, Lungs Clear, Normal Breath Sounds Cardiovascular: Regular Rate, Rhythm, No Edema, No Murmur, Normal Peripheral Pulses Gastrointestinal: Normal Bowel Sounds, Non Tender, Soft; No Mass, No Rebound, No Tenderness Back: Normal Inspection, No CVA Tenderness Extremity: Normal Capillary Refill, Normal Inspection, Normal Range of Motion, Non Tender, No Calf Tenderness, No Pedal Edema Neurologic/Psychiatric: Alert, Oriented x3, No Motor/Sensory Deficits, Normal M ood/Affect, 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 Skin: Normal Color, Warm/Dry; No Diaphoresis Lymphatic: No Adenopathy Procedures/Interventions Suture Size: 4-0 Progress/Results/Core Measures Suspected Sepsis Recent Fever Within 48 Hours: No Infection Criteria Present: None New/Unexplained Altered Menta: No Sepsis Screen: No Definite Risk SIRS Temperature:97.5 Pulse: 83 Respiratory Rate: 16 Laboratory Tests 07/07/19 11:45: White Blood Count 5.9 Blood Pressure 123 /78 Mean: 93 Laboratory Tests 07/07/19 11:45: Creatinine 0.89, Platelet Count 289, Total Bilirubin 0.2 Results/Orders Lab Results Laboratory Tests Test 07/07/19 11:24 07/07/19 11:45 Range/Units Urine Color YELLOW Urine Clarity CLEAR Urine pH 6 5-9 Urine Specific [place] 1.005 L 1.016-1.022 Urine Protein NEGATIVE NEGATIVE Urine Glucose (UA) NEGATIVE NEGATIVE Urine Ketones NEGATIVE NEGATIVE Urine Nitrite NEGATIVE NEGATIVE Urine Bilirubin NEGATIVE NEGATIVE Urine Urobilinogen NORMAL NORMAL MG/DL Urine Leukocyte Esterase NEGATIVE NEGATIVE Urine RBC (Auto) NEGATIVE NEGATIVE Urine RBC RARE /HPF Urine WBC NONE /HPF Urine Crystals NONE /LPF Urine Bacteria TRACE /HPF Urine Casts NONE /LPF Urine Mucus NEGATIVE /LPF Urine Culture Indicated NO Urine Opiates Screen NEGATIVE NEGATIVE Urine Oxycodone Screen NEGATIVE NEGATIVE Urine Methadone Screen NEGATIVE NEGATIVE Urine Propoxyphene Screen NEGATIVE NEGATIVE Urine Barbiturates Screen NEGATIVE NEGATIVE Ur Tricyclic Antidepressants Screen NEGATIVE NEGATIVE Urine Phencyclidine Screen NEGATIVE NEGATIVE Urine Amphetamines Screen NEGATIVE NEGATIVE Urine Methamphetamines Screen NEGATIVE NEGATIVE Urine Benzodiazepines Screen NEGATIVE NEGATIVE Urine Cocaine Screen NEGATIVE NEGATIVE Urine Cannabinoids Screen POSITIVE H NEGATIVE White Blood Count 5.9 4.3-11.0 10^3/uL Red Blood Count 4.60 4.35-5.85 10^6/uL Hemoglobin 13.8 13.3-17.7 G/DL Hematocrit 41 40-54 % Mean Corpuscular Volume 90 80-99 FL Mean Corpuscular Hemoglobin 30 25-34 PG Mean Corpuscular Hemoglobin Concent 33 32-36 G/DL Red Cell Distribution Width 13.6 10.0-14.5 % Platelet Count 289 130-400 10^3/uL Mean Platelet Volume 8.5 7.4-10.4 FL Neutrophils (%) (Auto) 56 42-75 % Lymphocytes (%) (Auto) 32 12-44 % Monocytes (%) (Auto) 10 0-12 % Eosinophils (%) (Auto) 1 0-10 % Basophils (%) (Auto) 1 0-10 % Neutrophils # (Auto) 3.3 1.8-7.8 X 10^3 Lymphocytes # (Auto) 1.9 1.0-4.0 X 10^3 Monocytes # (Auto) 0.6 0.0-1.0 X 10^3 Eosinophils # (Auto) 0.1 0.0-0.3 10^3/uL Basophils # (Auto) 0.0 0.0-0.1 10^3/uL Sodium Level 140 135-145 MMOL/L Potassium Level 4.1 3.6-5.0 MMOL/L Chloride Level 110 H 98-107 MMOL/L Carbon Dioxide Level 25 21-32 MMOL/L Anion Gap 5 5-14 MMOL/L Blood Urea Nitrogen 11 7-18 MG/DL Creatinine 0.89 0.60-1.30 MG/DL Estimat Glomerular Filtration Rate > 60 BUN/Creatinine Ratio 12 Glucose Level 95 70-105 MG/DL Calcium Level 8.8 8.5-10.1 MG/DL Corrected Calcium 8.7 8.5-10.1 MG/DL Magnesium Level 1.9 1.6-2.4 MG/DL Total Bilirubin 0.2 0.1-1.0 MG/DL Aspartate Amino Transf (AST/SGOT) 19 5-34 U/L Alanine Aminotransferase (ALT/SGPT) 34 0-55 U/L Alkaline Phosphatase 103 40-136 U/L Myoglobin 43.7 10.0-92.0 NG/ML Total Protein 6.6 6.4-8.2 GM/DL Albumin 4.1 3.2-4.5 GM/DL Thyroid Stimulating Hormone (TSH) 0.57 0.35-4.94 UIU/ML My Orders Orders - CRISTOPHER MCCOY Drug Screen Stat (Urine) (07/07/19 11:03) Ua Culture If Indicated (07/07/19 11:03) Cbc With Automated Diff (07/07/19 11:31) Comprehensive Metabolic Panel (07/07/19 11:31) Magnesium (07/07/19 11:31) Thyroid Stimulating Hormone (07/07/19 11:31) Myoglobin Serum (07/07/19 11:31) Vital Signs/I&O 07/07/19 11:15 Temp 97.5 Pulse 83 Resp 16 B/P (MAP) 123/78 (93) Pulse Ox 97 O2 Delivery Room Air Capillary Refill : Less Than 3 Seconds Blood Pressure Mean: 93 Progress Note : Time: 11:30 Progress Note Patient seen and evaluated, will obtain labs. He is having no nausea so we'll continue with oral hydration. He was drinking Sprite and has been given a Pedialyte. 1230 labs all essentially normal. Discussed with the patient. He is to continue with oral hydration and follow-up with his regular care provider if symptoms are not improving. Departure Impression Primary Impression: Fatigue Qualified Codes: R53.83 - Other fatigue Disposition: 01 HOME, SELF-CARE Condition: Improved Departure-Patient Inst. Decision time for Depature: 12:40 Referrals: KARIME AGUILERA DO (PCP) Primary Care Physician DEVIN COVARRUBIAS (Family) Primary Care Physician Patient Instructions: Dehydration, Adult (DC) Add. Discharge Instructions: Continue to increase oral hydration, 16 ounces every 2 hours while awake. Alternate between water, Gatorade, and Pedialyte. Eat a well-balanced diet. Periods of rest between heat exposure. Follow-up with your primary care provider if symptoms are not improving or worsen. Stop or decrease her marijuana use. Return to emergency department for new, urgent health problems. All discharge instructions reviewed with patient and/or family. Voiced understanding. Scripts No Active Prescriptions or Reported Meds Copy Copies To 1: KARIME AGUILERA AMY ARNP Jul 07, 2019 11:45
[2019-07-07 11:48] LABS: BACTERIA,URINE TRACE /HPF; RBC,URINE RARE /HPF
[2019-07-07 11:50] LABS: BASOPHILS % (AUTO) 1 % (0-10); EOSINOPHILS # (AUTO) 0.1 10^3/uL (0.0-0.3); EOSINOPHILS % (AUTO) 1 % (0-10); HEMATOCRIT 41 % (40-54); HEMOGLOBIN 13.8 G/DL (13.3-17.7); LYMPHOCYTES # (AUTO) 1.9 X 10^3 (1.0-4.0); LYMPHOCYTES % (AUTO) 32 % (12-44); MEAN CORPUSCULAR HEMOGLOBIN 30 PG (25-34); MEAN CORPUSCULAR HGB CONC 33 G/DL (32-36); MEAN CORPUSCULAR VOLUME 90 FL (80-99); MEAN PLATELET VOLUME 8.5 FL (7.4-10.4); MONOCYTES # (AUTO) 0.6 X 10^3 (0.0-1.0); MONOCYTES % (AUTO) 10 % (0-12); NEUTROPHILS # (AUTO) 3.3 X 10^3 (1.8-7.8); NEUTROPHILS % (AUTO) 56 % (42-75); PLATELET COUNT 289 10^3/uL (130-400); RED CELL DISTRIBUTION WIDTH 13.6 % (10.0-14.5); WHITE BLOOD COUNT 5.9 10^3/uL (4.3-11.0)
[2019-07-07 12:15] LABS: ALANINE AMINOTRANSFERASE 34 U/L (0-55); ALBUMIN 4.1 GM/DL (3.2-4.5); ALKALINE PHOSPHATASE 103 U/L (40-136); BILIRUBIN,TOTAL 0.2 MG/DL (0.1-1.0); BUN/CREATININE RATIO 12; CALCIUM 8.8 MG/DL (8.5-10.1); CARBON DIOXIDE 25 MMOL/L (21-32); CHLORIDE 110 MMOL/L (98-107); CREATININE SERUM 0.89 MG/DL (0.60-1.30); GFR ESTIMATED > 60; GLUCOSE 95 MG/DL (70-105); MAGNESIUM 1.9 MG/DL (1.6-2.4); POTASSIUM 4.1 MMOL/L (3.6-5.0); SODIUM 140 MMOL/L (135-145); TOTAL PROTEIN 6.6 GM/DL (6.4-8.2)
[2019-07-07 12:58] VITALS: BP 123/78
== END 2019-07-07 12:58 | disposition home or self-care (01) ==
LOC: EDUNIT# 10:31 → ER 10:32
DX: R53.83 Other fatigue (principal); K21.9 Gastro-esophageal reflux disease without esophagitis; Z88.8 Allergy status to other drugs, medicaments and biological substances; Z77.22 Contact with and (suspected) exposure to environmental tobacco smoke (acute) (chronic); Z86.018 Personal history of other benign neoplasm
CPT/HCPCS: 36415; 80053; 80306; 81000; 83735; 83874; 84443; 85025; 99282

== ENCOUNTER 2019-10-25 08:48 | Emergency (ER) | payer MEDICAID ==
[~2019-10-25] VITALS: Ht 70 cm; Wt 101.8 kg
--- NOTE | 2019-10-25 10:19 | ED Cough/URI ---
General Chief Complaint: Cough/Cold/Flu Symptoms Stated Complaint: COUGH;CONGESTION Nursing Triage Note: PT REPORTS COUGH AND CONGESTION FOR 1 WEEK. COUGH HAS GOTTEN WORSE AND IS NOW KEEPING PATIENT UP AT NIGHT. PT IS ALSO DIZZY AND LIGHT HEADED. 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 He has a history of intermittent asthma but his last albuterol inhaler is over a year old and he has not tried it. He smokes. He denies history of COPD. He is not having any wheezing. He is not having any nausea vomiting or diarrhea. His son is sick with similar symptoms that progressed to nausea vomiting and diarrhea for couple days ago but he is progressively getting better. He brought his son to the ER earlier in the week and said that the influenza swab was negative. Allergies and Home Medications Allergies Coded Allergies: lovastatin (Verified Allergy, Unknown, Anaphylaxis, 05/17/19) Home Medications Albuterol Sulfate 1 Puff Puff, 2 PUFF INH Q4H PRN for COUGH 1 PUFF = 90 MCG Prescribed by: VON MARIE on 10/25/19 1233 Benzonatate 100 Mg Capsule, 100 MG PO Q6H PRN for COUGH Prescribed by: VON MARIE on 10/25/19 1233 Patient Home Medication List Home Medication List Reviewed: Yes Review of Systems Review of Systems Constitutional: chills, fever (subjective), malaise EENTM: No ear discharge, No ear pain Respiratory: cough; No phlegm, No short of breath, No wheezing Cardiovascular: No chest pain, No Hx of Intervention, No palpitations Gastrointestinal: No abdominal pain, No nausea, No vomiting Genitourinary: No discharge, No dysuria Musculoskeletal: No back pain, No joint pain Skin: No pruritus, No rash Psychiatric/Neurological: Denies Headache, Denies Numbness, Denies Paresthesia Past Gcvqxgw-Dxmmiq-Pkiagi Hx Patient Social History Alcohol Use: Occasionally Uses Recreational Drug Use: Yes Drug of Choice: marijuana daily Type Used: Cigarettes 2nd Hand Smoke Exposure: Yes Recent Foreign Travel: No Contact w/Someone Who Travel: No Recent Infectious Disease Expo: No Recent Hopitalizations: No Immunizations Up To Date Tetanus Booster (TDap): Unknown PED Vaccines UTD: Yes Seasonal Allergies Seasonal Allergies: Yes (ALLERGIC TO HIS DOG) Past Medical History Surgeries: Yes (TUMOR REMOVED FROM STOMACH, TUBE IN ONE EAR) Abdominal, Ear Surgery Respiratory: No Cardiac: No Neurological: No Reproductive Disorders: Yes (scrotal swelling when constipated) Genitourinary: Yes Gastrointestinal: Yes Gastroesophageal Reflux Musculoskeletal: No Endocrine: No HEENT: No Cancer: No Psychosocial: No Integumentary: Yes (rash on both arms) Blood Disorders: No Family Medical History No Pertinent Family Hx Physical Exam Vital Signs - First Documented 10/25/19 09:08 Temp 36.8 Pulse 107 Resp 16 B/P (MAP) 133/74 (93) Pulse Ox 97 Capillary Refill : Less Than 3 Seconds Height: 5'10.00" Weight: 230lbs. 6.0oz. 104.136068rx; 207.00 BMI Method:Stated General Appearance: WD/WN, mild distress Eyes: Bilateral Eye Normal Inspection, Bilateral Eye PERRL, Bilateral Eye EOMI HEENT: PERRL/EOMI, normal ENT inspection, TMs normal, pharynx normal Neck: non-tender, full range of motion, supple, normal inspection Respiratory: lungs clear, normal breath sounds, no respiratory distress, no accessory muscle use Cardiovascular: normal peripheral pulses, regular rate, rhythm, no edema Gastrointestinal: normal bowel sounds, non tender, soft Neurologic/Psychiatric: alert, normal mood/affect Skin: normal color, warm/dry Procedures/Interventions Suture Size: 4-0 Progress/Results/Core Measures Suspected Sepsis Recent Fever Within 48 Hours: No Infection Criteria Present: None New/Unexplained Altered Menta: No Sepsis Screen: No Definite Risk SIRS Temperature: Pulse: 107 Respiratory Rate: 16 Blood Pressure 133 /74 Mean: 93 Results/Orders Micro Results Microbiology 10/25/19 Influenza Types A,B Antigen (DARRYL) - Final, Complete My Orders Orders - VON MARIE Chest Pa/Lat (2 View) (10/25/19 10:17) Influenza A And B Antigens (10/25/19 10:17) Vital Signs/I&O 12/23/19 12/23/19 09:08 12:37 Temp 36.8 Pulse 107 113 Resp 16 18 B/P (MAP) 133/74 (93) 150/82 Pulse Ox 97 97 Capillary Refill : Less Than 3 Seconds Blood Pressure Mean: 93 Progress Note : Time: 10:24 Progress Note Influenza swab and a chest x-ray. Plan to put him out with an albuterol inhaler, note for work, Tessalon Perles and ondansetron in case he develops gastroenteritis symptoms like his son. Patient's in agreement with this plan. Diagnostic Imaging Diagonstic Imaging: Xray Plain Films/CT/US/NM/MRI: chest (1v) Comments NAME: MANDO SPENCER [facility] REC#: [id number] PT STATUS: REG ER : 1985 PHYSICIAN: VON MARIE MD ADMIT DATE: 10/25/19/ER Draft Date of Exam:10/25/19 CHEST PA/LAT (2 VIEW) INDICATION: Cough and congestion. TIME OF EXAM: 10:34 AM Comparison is made with prior chest from 12/17/2015. The heart size is normal. The pulmonary vascularity is unremarkable. The lungs are clear. No infiltrate, effusion or pneumothorax is detected. Impression: No acute cardiopulmonary process is detected. Dictated on workstation # [id number] Dict: 10/25/19 1037 Trans: 10/25/19 1039 [facility] [id number] Interpreted by: DANIELLA GREER MD Electronically signed by: Reviewed: Reviewed by Me Departure Impression Primary Impression: Influenza Disposition: 01 HOME, SELF-CARE Condition: Stable Departure-Patient Inst. Decision time for Depature: 12:24 Referrals: KARIME AGUILERA DO (PCP) Primary Care Physician DEVIN COVARRUBIAS (Family) Primary Care Physician Patient Instructions: Viral Upper Respiratory Infection, Adult (DC), Cough in Adults Add. Discharge Instructions: Humidifiers, vapor rubs and ueee-vmd-bfauhed cough medicines such as guaifenesin and Mucinex can be helpful. Drink plenty of fluids. Tylenol 1000 mg every 8 hours as needed for pain or fever. Ibuprofen 800 mg every 8 hours as needed for pain or fever. For coughing you may use the albuterol inhaler 2 puffs through a spacer every 4 hours as needed. You may use 1-2 caplets of Tessalon Perles every 6 hours as needed for coughing. All discharge instructions reviewed with patient and/or family. Voiced understanding. Scripts Benzonatate (Tessalon Perle) 100 Mg Capsule 100 MG PO Q6H PRN for COUGH, #30 CAP 0 Refills Prov: VON MARIE 10/25/19 Albuterol Sulfate (VENTOLIN HFA) 1 Puff Puff 2 PUFF INH Q4H PRN for COUGH, #1 EA 0 Refills 1 PUFF = 90 MCG Prov: VON MARIE 10/25/19 Work/School Note: Work Release Form Date Seen in the Emergency Department: Oct 25, 2019 Return to Work: Nov 02, 2019 Restrictions: No Restrictions VON MARIE Oct 25, 2019 10:19
--- NOTE | 2019-10-25 10:40 | Diagnostic Imaging Report ---
INDICATION: Cough and congestion. TIME OF EXAM: 10:34 AM Comparison is made with prior chest from 12/17/2015. The heart size is normal. The pulmonary vascularity is unremarkable. The lungs are clear. No infiltrate, effusion or pneumothorax is detected. Impression: No acute cardiopulmonary process is detected. Dictated by: Dictated on workstation # [id number]
[2019-10-25] MEDS ORDERED: RT-ALBUINH INH (12:33)
[2019-10-25] MEDS ORDERED: BENZ-13 PO (12:33)
[2019-10-25 12:37] VITALS: BP 150/82
== END 2019-10-25 12:41 | disposition home or self-care (01) ==
LOC: EDUNIT# 08:48 → ER 08:49
DX: J11.1 Influenza due to unidentified influenza virus with other respiratory manifestations (principal); K21.9 Gastro-esophageal reflux disease without esophagitis; Z88.8 Allergy status to other drugs, medicaments and biological substances; Z77.22 Contact with and (suspected) exposure to environmental tobacco smoke (acute) (chronic)
CPT/HCPCS: 71046; 87804